=== PATIENT | male | born 1960 | race Two or more races ===

== ENCOUNTER 2024-08-06 21:58 | Emergency (ER) | payer MEDICARE, MEDICAID, SELFPAY ==
[2024-08-06] VITALS (9 sets, daily range): BP systolic 92–140; BP diastolic 42–60; PULSE 74–83; RESP 18–26; TEMP 37.1; O2SAT 94–100; BMI 26.5
--- NOTE | 2024-08-06 22:04 | EKG_ITS ---
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
--- NOTE | 2024-08-06 22:08 | PC.RT ---
pt transfered to ED without complications on 50% fio2 10L blow by spo2 96% hr 82, RR26.
--- NOTE | 2024-08-06 22:09 | XR_ITS ---
Examination: AP chest single view Technique one AP portable semiupright chest single view Exam date and time: August 06, 2024 1025 hrs. Comparison December 30, 2020 Indications: Coughing today. Findings: No significant cardiac enlargement Ectatic thoracic aorta Tracheostomy tube tip 20 mm above ifrah No lobar pneumonia No pulmonary edema Moderate osteopenia Impression: No pneumonia identified
[2024-08-06] MEDS: SODIUM CHLORIDE 0.9% 1000 ML 1,000 ML 999 ML IV ×2 (22:17→22:18)
--- NOTE | 2024-08-06 22:22 | PD.EDSOB ---
ED SOB =RME/HPI General Chief Complaint: Shortness of Breath/Dyspnea Stated Complaint: LOW O2 STATS Time Seen by Provider: 08/06/24 22:21 Arrival date/time: 08/06/24 21:58 RME / HPI RME / HPI Narrative: DR. ALEJANDRO MAIN ED EVALUATION: 64 year old male with past medical history significant for hypertension, hypercholesterolemia, GERD, and a GI tube in place presents to the Emergency Department from our subacute unit with complaints of O2 sat low and low blood pressure. Related Data Allergies Allergy/AdvReac Type Severity Reaction Status Date / Time No Known Allergies Allergy Verified 08/06/24 22:04 Review of Systems Review of Systems ROS Unobtainable: unobtainable due to medical condition Past Medical History Past Medical History CARDIAC: Positive Hypercholesterolemia, Edema and Hypertension RESPIRATORY: Positive Pneumonia GASTROINTESTINAL: Positive Gastroesophageal Reflux Disease GENITOURINARY: Positive Renal Disease ENT: Positive Glaucoma HEMATOLOGIC: Positive Anemia Surgical History SURGICAL: Positive Abdominal Surgery Social History SMOKING STATUS: Never smoker SUBSTANCE USE: does not use ALCOHOL: Never ED Exam Narrative Physical exam: GENERAL APPEARANCE: patient bedbound, no history obtainable from patient, at baseline. VITALS: All vitals were reviewed and the pulse ox is 100% on room air, which is normal according to my interpretation. HEENT: Normocephalic, atraumatic; pupils equal, round, reactive to light; EOMI; mucous membranes pink, moist; oropharynx clear NECK: Supple LUNGS: CTABL; no wheezes, no rales, no rhonchi HEART: Regular rate, regular rhythm; normal S1, S2; no murmurs ABDOMEN: GI tube in place. Non distended; soft, no tenderness, no guarding, no rebound; no masses, no organomegaly, no hernia BACK: no CVA tenderness EXTREMITIES: atraumatic; no edema NEUROLOGIC: at baseline PSYCHIATRIC: at baseline SKIN: warm, dry, normal color; no rashes Course Quality Measures none Orders Category Date Time Status EKG (ED ONLY) *Do not use* NOW Care 08/06/24 22:04 Completed Roper [Urinary Catheter] QS Care 08/06/24 22:20 Completed MRI Screening NOW Care 08/07/24 05:18 Completed Referral - Field Sales Consultant Stat Cons 08/07/24 10:[address] abdomen pelvis wo con Stat Exams 08/07/24 00:[address] head/brain wo con Stat Exams 08/07/24 10:26 Completed EKG (ED Only) Stat Exams 08/06/24 22:04 Draft MR MRCP Stat Exams 08/07/24 Completed US abdomen limited Stat Exams 08/07/24 00:03 Completed XR chest 1V portable Stat Exams 08/06/24 22:09 Completed ABG [Arterial Blood Gas] Stat Lab 08/06/24 22:21 Completed Blood Culture (Lab) Stat Lab 08/06/24 22:15 Completed CBC Stat Lab 08/07/24 11:18 Completed CMP [Comprehensive Metabolic Panel] Stat Lab 08/06/24 22:15 Completed CMP [Comprehensive Metabolic Panel] Stat Lab 08/07/24 11:18 Completed Lactate (Lactic Acid) Stat Lab 08/06/24 22:15 Completed Lactic Acid [Lactate (Lactic Acid)] Stat Lab 08/07/24 11:18 Completed Lactic Acid, 3 HR Stat Lab 08/07/24 01:54 Completed Lipase Stat Lab 08/07/24 11:18 Completed Urinalysis Stat Lab 08/07/24 01:45 Completed Urine Culture Stat Lab 08/07/24 01:45 Completed LORazepam [Ativan Inj] Med 08/07/24 13:06 Discontinued 0.5 mg IVP X1 ONE Morphine Inj Med 08/07/24 13:30 Discontinued 8 mg IVP X1 ONE Morphine Inj Med 08/07/24 13:30 Stop Req 8 mg IVP X1 ONE Morphine Inj [Morphine Sulf Inj] Med 08/07/24 13:06 Discontinued 8 mg IVP X1 ONE Piper/Tazo 3.375 gm [Zosyn] Med 08/07/24 01:36 Discontinued 3.375 gm in 50 ml IV X1 Piper/Tazo 3.375 gm [Zosyn] 50 ml Med 08/07/24 02:02 Discontinued IV .STK-MED Piper/Tazo Inj [Zosyn Inj] 3.375 gm Med 08/07/24 10:45 Discontinued Sodium Chloride 0.9% (P) [NS 0.9% mini bag] 100 ml IV X1 Piper/Tazo Inj [Zosyn Inj] 3.375 gm Med 08/07/24 02:00 Discontinued Sodium Chloride 0.9% (P) [Ns 0.9% (P)] 50 ml IV X1 Sodium Chloride 0.9% 1000 ml [Ns] 1,000 ml Med 08/06/24 22:08 Discontinued IV 999 mls/hr Sodium Chloride 0.9% 1000 ml [Ns] 1,000 ml Med 08/06/24 22:08 Discontinued IV 999 mls/hr Sodium Chloride 0.9% 1000 ml [Ns] 1,000 ml Med 08/07/24 14:25 Discontinued IV 999 mls/hr Vancomycin Inj 1,000 mg Med 08/06/24 22:51 Discontinued Sodium Chloride 0.9% 250 ml [Ns] 250 ml IV X1 Vancomycin Pharmacy to Dose Med 08/07/24 10:30 Discontinued 1 each IV QDAY PRN Vancomycin/Ns 1 gm Ivpb 200 ml Med 08/07/24 14:00 Discontinued IV X1 cefTRIAXone/D5w 1gm IV premix [Rocephin/D5w 1gm IV Med 08/06/24 22:50 Discontinued premix] 50 ml IV X1 Oxygen Delivery NOW RT 08/06/24 22:25 Completed Vital Signs Vital signs: Vital Signs Temperature 98.7 F 08/06/24 22:04 Pulse Rate 83 08/06/24 22:04 Respiratory Rate 24 H 08/06/24 22:04 Blood Pressure 92/42 L 08/06/24 22:04 Pulse Oximetry (%) 94 L 08/06/24 22:04 Oxygen Delivery Method Blow-by 08/06/24 22:04 Oxygen Flow Rate 12 08/06/24 22:04 Shortness of Breath / Dyspnea MDM Narrative MDM Narrative:: I, Sachi Omalley, am scribing for and in the presence of Dr. Alejandro. 0600 Care signed out to Dr. Carlin. Past medical, surgical, social and family history reviewed. Vitals and home medications reviewed. Results and treatment plan discussed. They will assume the care of the patient at this time and will follow the patient, pending MRCP and final dispo. Patient data External records reviewed:: [facility] previous records (Reviewed last pulmonology progress note by Dr. Smith, dated 08/04/24.) Clinical information provided by:: other (specify) (subacute unit nurse) Social determinants that could affect healthcare access:: housing (subacute unit) Patient has the following chronic illnesses:: Hypertension, hypercholesterolemia, GERD, and a GI tube in place. How is presenting disease/condition affected by chronic disease/condition?: exacerbated by Evaluation data The following diagnostics were reviewed and interpreted by me:: lab results, radiology exam(s) and EKG tracing(s) Lab and/or radiology exams considered but not ordered:: none Interpretation Summary: Procedure(s): XR chest 1V portable Accession Number(s): [id number] cc: Conor Wallace MD; Yohana Alejandro MD~ Examination: AP chest single view Technique one AP portable semiupright chest single view Exam date and time: August 06, 2024 1025 hrs. Comparison December 30, 2020 Indications: Coughing today. Findings: No significant cardiac enlargement Ectatic thoracic aorta Tracheostomy tube tip 20 mm above ifrah No lobar pneumonia No pulmonary edema Moderate osteopenia Impression: No pneumonia identified Dictated By: Conor Wallace MD Medications / Prescriptions Medications or Prescriptions considered but not ordered:: none Medication administrations:: Medication Administration History Discontinued Medications Sodium Chloride (Ns) 1,000 mls @ 999 mls/hr IV .Q1H1M ONE Stop: 08/06/24 23:08 Last Infusion: 08/06/24 23:20 Dose: Infused Documented By: Admin: 08/06/24 22:17 Dose: 999 mls/hr Documented By: BETI Sodium Chloride (Ns) 1,000 mls @ 999 mls/hr IV .Q1H1M ONE Stop: 08/06/24 23:08 Last Infusion: 08/06/24 23:20 Dose: Infused Documented By: Admin: 08/06/24 22:18 Dose: 999 mls/hr Documented By: BETI Ceftriaxone Sodium/Dextrose (Rocephin/D5w 1gm Iv Premix) 50 mls @ 100 mls/hr IV X1 ONE Stop: 08/06/24 23:19 Last Infusion: 08/07/24 00:02 Dose: Infused Documented By: Admin: 08/06/24 22:58 Dose: 100 mls/hr Documented By: MANSOOR Vancomycin HCl 1,000 mg/ (Sodium Chloride) 250 mls @ 150 mls/hr IV X1 ONE Stop: 08/07/24 00:30 Last Infusion: 08/07/24 01:28 Dose: Infused Documented By: Admin: 08/06/24 23:27 Dose: 150 mls/hr Documented By: MANSOOR Piperacillin/Tazobactam/Dextrose (Zosyn) 3.375 gm in 50 mls @ 100 mls/hr IV X1 ONE Stop: 08/07/24 02:05 Last Admin: 08/07/24 02:01 Dose: Not Given Documented By: ADELSO Non-Admin Reason: Discontinued Piperacillin Sod/Tazobactam (Sod 3.375 gm/ Sodium Chloride) 50 mls @ 100 mls/hr IV X1 ONE Stop: 08/07/24 02:29 Last Infusion: 08/07/24 02:59 Dose: Infused Documented By: Admin: 08/07/24 02:03 Dose: 100 mls/hr Documented By: ADELSO Piperacillin/Tazobactam/Dextrose (Zosyn) Confirm Administered Dose 50 mls @ ud IV .STK-MED ONE Stop: 08/07/24 02:03 Last Admin: 08/07/24 02:11 Dose: Not Given Documented By: ADELSO Non-Admin Reason: Override Medication Piperacillin Sod/Tazobactam (Sod 3.375 gm/ Sodium Chloride) 100 mls @ 200 mls/hr IV X1 ONE Stop: 08/07/24 11:14 Last Infusion: 08/07/24 12:15 Dose: Infused Documented By: Admin: 08/07/24 11:44 Dose: 200 mls/hr Documented By: DO Vancomycin/Sodium Chloride (Vancomycin/Ns 1 Gm Ivpb) 200 mls @ 120 mls/hr IV X1 ONE Stop: 08/07/24 15:39 Last Infusion: 08/07/24 17:20 Dose: Infused Documented By: Admin: 08/07/24 15:29 Dose: 120 mls/hr Documented By: DO Sodium Chloride (Ns) 1,000 mls @ 999 mls/hr IV .Q1H1M ONE Stop: 08/07/24 15:25 Last Infusion: 08/07/24 16:12 Dose: Infused Documented By: Admin: 08/07/24 14:26 Dose: 999 mls/hr Documented By: DO Lorazepam (Lorazepam 2 Mg/Ml Vial) 0.5 mg IVP X1 ONE Stop: 08/07/24 13:07 Last Admin: 08/07/24 14:20 Dose: 0.5 mg Documented By: DO Morphine Sulfate (Morphine Sulf Inj 4 Mg/Ml Vial) 8 mg IVP X1 ONE Stop: 08/07/24 13:07 Last Admin: 08/07/24 14:24 Dose: Not Given Documented By: DO Non-Admin Reason: Duplicate Medication on eMAR Morphine Sulfate (Morphine Sulf Inj 10 Mg/Ml Vial) 8 mg IVP X1 ONE Stop: 08/07/24 13:31 Morphine Sulfate (Morphine Sulf Inj 10 Mg/Ml Vial) 8 mg IVP X1 ONE Stop: 08/07/24 13:31 Last Admin: 08/07/24 14:21 Dose: 4 mg Documented By: DO Comments: dose changed per dr landry to 4mg Pharmacy Consult (Vancomycin Pharmacy To Dose 1 Each Each) 1 each IV QDAY PRN PRN Reason: CONSULT Stop: 09/06/24 10:29 see above Consultations Consultation(s) initiated? (list below): No Diagnosis Shortness of Breath Differential Diagnosis: congestive heart failure, community acquired pneumonia, asthma with exacerbation and pulmonary embolism Most likely diagnosis given after review of the tests above:: See below Admission Indicated Admission indicated?: not indicated Explain why admission is indicated or not indicated:: Sign out pending MRCP Admission Request Was there a request for admission?: No Disposition Plan Disposition Plan: other (specify) (Sign out pending MRCP) Discharge Plan Plan Patient Disposition: [facility] Facility Pt Being Transferred to: [facility] Service Needed for Transfer: Gastroenterology Patient condition on transfer: Stable Prescriptions/Referrals Referrals: Chino Smith MD [Primary Care Provider] - In 1 week Problem List Clinical Impression: Acute cholangitis due to calculus of bile duct with obstruction Patient/Caregiver Discharge Instructions Print Language: Pashto Stand Alone Forms: Mel Award Info., Patient Portal Info Letter
[2024-08-06 22:23] LABS: Lactate (Lactic Acid) 2.8 mMol/L (0.4-2.0)
[2024-08-06 22:28] LABS: Base Excess -2 (-3-3); HCO3 23 mEq/L (20-26); Inspired Oxygen, FIO2 50 %; O2 Saturation 99 % (91-98); PCO2 40 mmHg (32.0-48.0); PO2 112 mmHg (83-108); pH, Arterial 7.38 (7.35-7.45)
[2024-08-06 22:30] LABS: Allen Test Performed/OK; Puncture Site Site Not Noted
[2024-08-06 22:56] LABS: Alanine Aminotransferase 1048 U/L (10-49); Albumin, Serum 3.2 gm/dL (3.4-4.8); Albumin/Globulin Ratio 1.2 (1.2-2.2); Alkaline Phosphatase 190 U/L (46-116); Anion Gap 10 (7-16); BUN/Creatinine Ratio 15 Ratio (12-20); Bilirubin,Total 4.4 mg/dL (0.3-1.2); Blood Urea Nitrogen 29 mg/dL (9-23); Calcium 8.3 mg/dL (8.3-10.6); Calcium (Corrected) 8.9 mg/dL (8.5-10.1); Carbon Dioxide 23.4 mMol/L (20.0-31.0); Chloride 98 mMol/L (98-107); Creatinine (Component) 1.9 mg/dL (0.6-1.3); Estimated Creatinine Clearance 40.6 mL/min (>60); Globulin 2.7 gm/dL (2.3-3.5); Glucose 171 mg/dL (74-106); Osmolality,Calculated 272 (275-295); Potassium 4.1 mMol/L (3.4-5.1); Sodium 131 mMol/L (136-145); Total Protein 5.9 gm/dL (5.7-8.2); eGFR 39 See Note
[2024-08-06] MEDS: cefTRIAXone/D5w 1gm IV premix 50 ML IV (22:58)
[2024-08-06 23:09] LABS: Aspartate Amino Transferase 1068 U/L (0-34)
[2024-08-06] MEDS: Vancomycin Inj 1,000 MG in SODIUM CHLORIDE 0.9% 250 ML 250 ML 150 MG IV (23:27)
[2024-08-07] VITALS (28 sets, daily range): BP systolic 103–151; BP diastolic 48–104; PULSE 59–102; RESP 8–34; TEMP 36.5–37.1; O2SAT 95–100
--- NOTE | 2024-08-07 | XR_ITS ---
MRI abdomen, without contrast. MRCP Date and time of exam: August 07, 2024 at 1410 hours INDICATIONS: Low O2 saturation low blood pressure, primary hepatocellular disease diagnosis with ascites, common bile duct enlarged 0.6 cm on abdomen sonogram today Technique: Multiple axial and coronal images of the abdomen have been obtained with the Siemens 1.5T MRI scanner. Images obtained included T1 weighted transverse images, T2-weighted transverse images, T2-weighted transverse images fat-suppressed, T2 weighted haste fat suppressed transverse images, T1 weighted images, in and out of phase images, T2-weighted coronal images, breath hold, T2 weighted haze coronal images as well as T2 weighted coronal thick slab images, MRCP. Findings: No focal liver lesions Gallbladder not visualized Common bile duct 6 mm 4 mm common bile duct stone coronal image 19 Mild free fluid in the abdomen below the liver surrounding the kidneys and around the pancreas, clinical correlation advised Aorta normal size No splenomegaly No hydronephrosis IMPRESSION: Mild ascites 4 mm distal common bile duct stone
--- NOTE | 2024-08-07 00:03 | XR_ITS ---
Examination: Abdomen sonogram, Limited Date and time of exam: August 07, 2024 0138 hrs. Indications: Elevated liver function tests on laboratory examination today, hypoxic respiratory failure Technique: Real-time patterson scale transabdominal sonographic images of the upper abdomen obtained. Findings: Gallbladder not visualized Common bile duct 0.6 cm no stones Pancreas obscured by bowel gas Liver 14.5 cm irregular contour mild ascites Normal hepatopedal portal venous flow Patent IVC Impression: Limited study Common bile duct 0.6 cm no stones Primary hepatocellular disease with mild ascites
--- NOTE | 2024-08-07 00:03 | XR_ITS ---
Examination: CT abdomen and pelvis without contrast. Coronal 3-D reconstructions. Sagittal 2-D reconstructions. Date and time of exam:August 07, 2024 0032 hrs. Indications: Low O2 saturation, hypoxia, onset sepsis today CTDI: vol (mGy): 12.81 DLP: (mGycm): 823 Technique: Axial images of the abdomen have been obtained, 3 mm slice thickness Intravenous contrast material has not been administered. Low dose protocols were performed. One or more of the following dose reduction techniques were used; automated exposure control, adjustment of the mA and/or KV according to patient size, use of iterative reconstruction technique. Findings: Right base pneumonia Small right pleural effusion Mild right pleural disease No focal liver lesions Absent gallbladder Common bile duct at least 8 mm with 4 mm calculus in the distal common bile duct Suspicious for edema around the pancreas Perinephric stranding Aorta normal size No pericecal inflammatory change No diverticulitis Large amounts of stool in the rectosigmoid with thickening of the rectal wall Urinary bladder contracted around a Roper catheter Prominent osteopenia Impression: Recommend MRCP follow-up to confirm 4 mm calculus in the distal common bile duct as well as to confirm pancreatitis Right base pneumonia Large amounts of stool in the rectosigmoid with proctitis pattern but clinical correlation advised
--- NOTE | 2024-08-07 00:45 | PC.RT ---
pt back from ct without complications pt on 8L 30% hr 72, sats 96% RR18.
[2024-08-07 01:23] LABS: Reflex Lactate? Y
--- NOTE | 2024-08-07 01:38 | PRELIM_ITS ---
CT scan of the abdomen and pelvis without intravenous contrast (axial sections with sagittal and zara nal reformats). August 07, 2024 at 0032 hours Clinical History: Sepsis. Comparison: No prior study is available for comparison. Findings:The gallbladder is surgically absent. There is a 4 mm calculus in the distal common bile duct (coronal image #91/161) with mildly dilated common bile duct, measurin g 9 mm. The pancreas appears mildly edematous with minimal peripancreatic fat stranding. No evidence of loculated peripancreatic fluid collection. The liver, spleen and adrenals are unremarkable on this noncontrast study. Subtle nonspecific bilateral perinephric fat stranding, which may be due to intra venous infusion versus pyelonephritis. There is no renal or ureteric calculus. A subcentimeter hypod ense lesion is seen in the right kidney, too small to characterize. A percutaneous gastrostomy tube i s seen with its bulb within the body of the stomach. The stomach is mildly distended with air and fl uid. No evidence of bowel obstruction. The appendix is not visualized. There are multiple colonic di verticula without evidence of diverticulitis. Rectosigmoid colon fecal impaction is seen with wall th ickening and surrounding fat stranding. The aorta and its branches demonstrate atheromatous calcifica tion without evidence of aneurysm. There are subcentimeter mesenteric and retroperitoneal lymph nodes . A Roper catheter is seen in the urinary bladder. The urinary bladder is partially distended with ap parent wall thickening. The prostate is mildly enlarged. A small amount of free fluid is seen in the right upper and mid abdomen. No evidence of free air. The bones are osteopenic. Osseous degenerative changes are noted. Mild cardiomegaly is seen. A small pericardial effusion is seen. Bibasilar streak y and dependent atelectasis are present (right greater than left). A small right pleural effusion is seen. There is bilateral gynecomastia. Please note that evaluation of soft tissue/vascular structures and bowel loops is limited due to absence of IV and oral contrast. Impression:1. A 4 mm calculus in the distal common bile duct with dilated common bile duct as described. 2. Mildly edematous pancreas with minimal peripancreatic fat stranding; possibility of early/mild acute pancreatitis in the approp riate clinical setting. No evidence of peripancreatic fluid collection at this time.3. Subtle nonspec ific bilateral perinephric fat stranding, which may be due to intravenous infusion versus pyelonephri tis. Suggest clinical correlation and follow up accordingly. 4. Partially distended urinary bladder w ith apparent wall thickening, mild chronic cystitis cannot be excluded. 5. Rectosigmoid colon fecal impaction with possible stercoral colitis. 6. Bibasilar streaky and dependent atelectasis (right grea ter than left), consistent with aspiration/pneumonitis.7. Small pericardial effusion. 8. Small right pleural effusion.9. Other findings as described above. Suggest clinical correlation, comparison with prior studies, follow up or further evaluation as clinically indicated. Discussion Details: Results verbally communicated to : Dr. Alejandro at 01:29 AM 08/07/2024 Report Electronically Signed By: Mckay Banks 08/07/2024 1:38:10 AM [EST]
[2024-08-07 02:02] LABS: Collection Type, Urine Clean Catch
[2024-08-07] MEDS: PIPER/TAZO INJ 3.375 GM in SODIUM CHLORIDE 0.9% (P) 50 ML IV (02:03)
[2024-08-07 02:10] LABS: Bacteria,Urine 1+; Bilirubin,Urine Negative (Negative); Blood,Urine 3+ (Negative); Budding Yeast,Urine Present; Clarity,Urine Turbid (Clear/Hazy); Color,Urine Brown (Lt Yel-Yel); Glucose, Urine Negative (Negative); Ketones,Urine Negative (Negative); Leukocyte Esterase,Urine Positive (Negative); Nitrite,Urine Negative (Negative); PH,Urine 6.5 (5.0-7.0); Protein,Urine 1+ (Neg - Trace); RBC,Urine 195 /hpf (0-3); Specific Gravity,Urine 1.006 (1.001-1.035); Squamous Epithelial Cell,Urine 1 /hpf (0-5); Urobilinogen,Urine Negative mg/dL (0.0-1.0); WBC,Urine 27 /hpf (0-5)
--- NOTE | 2024-08-07 02:54 | PRELIM_ITS ---
Limited abdominal ultrasoundClinical history: Elevated LFTs.Comparison: CT study dated August 07.Findings:Post cholecystectomy. Common bile duct is 6 mm in diameter. Pancreas is not visualized, obscured by bowel gas. Liver is 14.5 cm long. Trace free fluid around the liver. Liver contour is irr egular. Main portal vein is antegrade. Inferior vena cava is patent. Right basal atelectasis/consolid ation.Impression:Post cholecystectomy.Trace free fluid around the liver and possible hepatic cirrhosi s.Right basal pulmonary disease. Report Electronically Signed By: Alex Sanchez 08/07/2024 2:53:30 AM [EST]
--- NOTE | 2024-08-07 06:45 | PC.NURSE ---
SPOKE TO RALF WHO ANSWERED MRI SCREENING, AND GAVE TELEPHONE VERBAL CONSENT FOR MRI TO BE DONE, CAPRI WAS WITNESS TO TELEPHONE VERBAL CONSENT.
--- NOTE | 2024-08-07 06:46 | PD.EDADDENDU ---
Emergency Room Addendum Addendum Narrative: 0600: Care assumed from , the previous shift emergency physician. Past medical, surgical, social and family history reviewed. Vitals and home medications reviewed. I will assume the care of the patient at this time, [facility] Please refer to the emergency department record for history and examination from initial visit.? Nursing notes reviewed by me. Vital signs reviewed by me. [facility] medical records reviewed by me. Patient from the subacute unit within this facility.
--- NOTE | 2024-08-07 07:10 | EDNOTE_ITS ---
ED General RME/HPI General Chief complaint: Shortness of Breath/Dyspnea Stated complaint: LOW O2 STATS Time Seen by Provider: 08/06/24 22:21 Arrival date/time: 08/06/24 21:58 RME / HPI RME / HPI narrative: A 64 year old male with past medical history significant for hypertension, hypercholesterolemia, GERD, and a GI tube in place presents to the Emergency Department from our subacute unit with complaints of O2 sat low and low blood pressure. Patient is unable to speak as he is on blow-by. Attempts were made to reach out to family. Patient was found to have 4mm calculus in the distal common bile duct with dilated common bile duct. At ~6:45am on 08/07/24-Nursing, Brian Patterson, spoke with over the phone who answered the question for our MRCP screening and a full telephone verbal consent for MRI to be done. RNJaniya, was witness to the telephone VERBAL CONSENT for MRCP and any further testing. MD complaint: Hypotension Related Data Allergies Allergy/AdvReac Type Severity Reaction Status Date / Time No Known Allergies Allergy Verified 08/06/24 22:04 Review of Systems Review of Systems Systems Reviewed: All systems reviewed, normal except as documented Past Medical History Past Medical History CARDIAC: Positive Hypercholesterolemia, Edema and Hypertension RESPIRATORY: Positive Pneumonia GASTROINTESTINAL: Positive Gastroesophageal Reflux Disease GENITOURINARY: Positive Renal Disease ENT: Positive Glaucoma HEMATOLOGIC: Positive Anemia Surgical History SURGICAL: Positive Abdominal Surgery Social History SMOKING STATUS: Never smoker SUBSTANCE USE: does not use ALCOHOL: Never ED Exam Narrative Physical exam: GENERAL APPEARANCE: male patient bedbound at baseline. VITALS: All vitals were reviewed and the pulse ox is 100% on blow-by HEENT: Normocephalic, atraumatic; pupils equal, round, reactive to light; moist mucous membranes. NECK: Supple LUNGS: CTABL; no wheezes, no rales, moderate rhonchi HEART: Regular rate, regular rhythm; normal S1, S2; no murmurs ABDOMEN: Non distended; soft, no tenderness, no guarding, no rebound; no masses, GI tube in place. surgical scar noted in RLQ BACK: no CVA tenderness EXTREMITIES: atraumatic; no edema NEUROLOGIC: at baseline SKIN: warm, dry, normal color; no rashes Course Quality Measures none Orders Category Date Time Status EKG (ED ONLY) *Do not use* NOW Care 08/06/24 22:04 Completed Roper [Urinary Catheter] QS Care 08/06/24 22:20 Completed MRI Screening NOW Care 08/07/24 05:18 Completed Referral - Veterans Contact Representative Stat Cons 08/07/24 10:[address] abdomen pelvis wo con Stat Exams 08/07/24 00:[address] head/brain wo con Stat Exams 08/07/24 10:26 Completed EKG (ED Only) Stat Exams 08/06/24 22:04 Draft MR MRCP Stat Exams 08/07/24 Completed US abdomen limited Stat Exams 08/07/24 00:03 Completed XR chest 1V portable Stat Exams 08/06/24 22:09 Completed ABG [Arterial Blood Gas] Stat Lab 08/06/24 22:21 Completed Blood Culture (Lab) Stat Lab 08/06/24 22:15 Results CBC Stat Lab 08/07/24 11:18 Completed CMP [Comprehensive Metabolic Panel] Stat Lab 08/06/24 22:15 Completed CMP [Comprehensive Metabolic Panel] Stat Lab 08/07/24 11:18 Completed Lactate (Lactic Acid) Stat Lab 08/06/24 22:15 Completed Lactic Acid [Lactate (Lactic Acid)] Stat Lab 08/07/24 11:18 Completed Lactic Acid, 3 HR Stat Lab 08/07/24 01:54 Completed Lipase Stat Lab 08/07/24 11:18 Completed Urinalysis Stat Lab 08/07/24 01:45 Completed Urine Culture Stat Lab 08/07/24 01:45 Received LORazepam [Ativan Inj] Med 08/07/24 13:06 Discontinued 0.5 mg IVP X1 ONE Morphine Inj Med 08/07/24 13:30 Discontinued 8 mg IVP X1 ONE Morphine Inj Med 08/07/24 13:30 Stop Req 8 mg IVP X1 ONE Morphine Inj [Morphine Sulf Inj] Med 08/07/24 13:06 Discontinued 8 mg IVP X1 ONE Piper/Tazo 3.375 gm [Zosyn] Med 08/07/24 01:36 Discontinued 3.375 gm in 50 ml IV X1 Piper/Tazo 3.375 gm [Zosyn] 50 ml Med 08/07/24 02:02 Discontinued IV .STK-MED Piper/Tazo Inj [Zosyn Inj] 3.375 gm Med 08/07/24 10:45 Discontinued Sodium Chloride 0.9% (P) [NS 0.9% mini bag] 100 ml IV X1 Piper/Tazo Inj [Zosyn Inj] 3.375 gm Med 08/07/24 02:00 Discontinued Sodium Chloride 0.9% (P) [Ns 0.9% (P)] 50 ml IV X1 Sodium Chloride 0.9% 1000 ml [Ns] 1,000 ml Med 08/06/24 22:08 Discontinued IV 999 mls/hr Sodium Chloride 0.9% 1000 ml [Ns] 1,000 ml Med 08/06/24 22:08 Discontinued IV 999 mls/hr Sodium Chloride 0.9% 1000 ml [Ns] 1,000 ml Med 08/07/24 14:25 Discontinued IV 999 mls/hr Vancomycin Inj 1,000 mg Med 08/06/24 22:51 Discontinued Sodium Chloride 0.9% 250 ml [Ns] 250 ml IV X1 Vancomycin Pharmacy to Dose Med 08/07/24 10:30 Discontinued 1 each IV QDAY PRN Vancomycin/Ns 1 gm Ivpb 200 ml Med 08/07/24 14:00 Discontinued IV X1 cefTRIAXone/D5w 1gm IV premix [Rocephin/D5w 1gm IV Med 08/06/24 22:50 Discontinued premix] 50 ml IV X1 Oxygen Delivery NOW RT 08/06/24 22:25 Completed Vital Signs Vital signs: Vital Signs Temperature 98.7 F 08/06/24 22:04 Pulse Rate 83 08/06/24 22:04 Respiratory Rate 24 H 08/06/24 22:04 Blood Pressure 92/42 L 08/06/24 22:04 Pulse Oximetry (%) 94 L 08/06/24 22:04 Oxygen Delivery Method Blow-by 08/06/24 22:04 Oxygen Flow Rate 12 08/06/24 22:04 [facility] Patient data External records reviewed:: None Clinical information provided by:: family Social determinants that could affect healthcare access:: none Patient has the following chronic illnesses:: history of hypertension, hypercholesterolemia, GERD, and a GI tube in place How is presenting disease/condition affected by chronic disease/condition?: u neffected by Evaluation data The following diagnostics were reviewed and interpreted by me:: lab results and radiology exam(s) Lab and/or radiology exams considered but not ordered:: N/A Interpretation Summary: CT head: no active defects noted. 4 mm distal common bile duct stone on MRCP. CT abdomen and pelvis showed common bile duct at least 8 mm with 4 mm calculus in the distal common bile duct Suspicious for edema around the pancreas. Medications Medications considered but not ordered:: N/A Medication administrations:: Medication Administration History Discontinued Medications Sodium Chloride (Ns) 1,000 mls @ 999 mls/hr IV .Q1H1M ONE Stop: 08/06/24 23:08 Last Infusion: 08/06/24 23:20 Dose: Infused Documented By: Admin: 08/06/24 22:17 Dose: 999 mls/hr Documented By: BETI Sodium Chloride (Ns) 1,000 mls @ 999 mls/hr IV .Q1H1M ONE Stop: 08/06/24 23:08 Last Infusion: 08/06/24 23:20 Dose: Infused Documented By: Admin: 08/06/24 22:18 Dose: 999 mls/hr Documented By: BETI Ceftriaxone Sodium/Dextrose (Rocephin/D5w 1gm Iv Premix) 50 mls @ 100 mls/hr IV X1 ONE Stop: 08/06/24 23:19 Last Infusion: 08/07/24 00:02 Dose: Infused Documented By: Admin: 08/06/24 22:58 Dose: 100 mls/hr Documented By: MANSOOR Vancomycin HCl 1,000 mg/ (Sodium Chloride) 250 mls @ 150 mls/hr IV X1 ONE Stop: 08/07/24 00:30 Last Infusion: 08/07/24 01:28 Dose: Infused Documented By: Admin: 08/06/24 23:27 Dose: 150 mls/hr Documented By: MANSOOR Piperacillin/Tazobactam/Dextrose (Zosyn) 3.375 gm in 50 mls @ 100 mls/hr IV X1 ONE Stop: 08/07/24 02:05 Last Admin: 08/07/24 02:01 Dose: Not Given Documented By: ADELSO Non-Admin Reason: Discontinued Piperacillin Sod/Tazobactam (Sod 3.375 gm/ Sodium Chloride) 50 mls @ 100 mls/hr IV X1 ONE Stop: 08/07/24 02:29 Last Infusion: 08/07/24 02:59 Dose: Infused Documented By: Admin: 08/07/24 02:03 Dose: 100 mls/hr Documented By: ADELSO Piperacillin/Tazobactam/Dextrose (Zosyn) Confirm Administered Dose 50 mls @ ud IV .STK-MED ONE Stop: 08/07/24 02:03 Last Admin: 08/07/24 02:11 Dose: Not Given Documented By: ADELSO Non-Admin Reason: Override Medication Piperacillin Sod/Tazobactam (Sod 3.375 gm/ Sodium Chloride) 100 mls @ 200 mls/hr IV X1 ONE Stop: 08/07/24 11:14 Last Infusion: 08/07/24 12:15 Dose: Infused Documented By: Admin: 08/07/24 11:44 Dose: 200 mls/hr Documented By: DO Vancomycin/Sodium Chloride (Vancomycin/Ns 1 Gm Ivpb) 200 mls @ 120 mls/hr IV X1 ONE Stop: 08/07/24 15:39 Last Infusion: 08/07/24 17:20 Dose: Infused Documented By: Admin: 08/07/24 15:29 Dose: 120 mls/hr Documented By: DO Sodium Chloride (Ns) 1,000 mls @ 999 mls/hr IV .Q1H1M ONE Stop: 08/07/24 15:25 Last Infusion: 08/07/24 16:12 Dose: Infused Documented By: Admin: 08/07/24 14:26 Dose: 999 mls/hr Documented By: Lorazepam (Lorazepam 2 Mg/Ml Vial) 0.5 mg IVP X1 ONE Stop: 08/07/24 13:07 Last Admin: 08/07/24 14:20 Dose: 0.5 mg Documented By: Morphine Sulfate (Morphine Sulf Inj 4 Mg/Ml Vial) 8 mg IVP X1 ONE Stop: 08/07/24 13:07 Last Admin: 08/07/24 14:24 Dose: Not Given Documented By: Non-Admin Reason: Duplicate Medication on eMAR Morphine Sulfate (Morphine Sulf Inj 10 Mg/Ml Vial) 8 mg IVP X1 ONE Stop: 08/07/24 13:31 Morphine Sulfate (Morphine Sulf Inj 10 Mg/Ml Vial) 8 mg IVP X1 ONE Stop: 08/07/24 13:31 Last Admin: 08/07/24 14:21 Dose: 4 mg Documented By: Comments: dose changed per dr landry to 4mg Pharmacy Consult (Vancomycin Pharmacy To Dose 1 Each Each) 1 each IV QDAY PRN PRN Reason: CONSULT Stop: 09/06/24 10:29 Ceftriaxone, vancomycin, Zosyn Consultations Consultation(s) initiated? (list below): Yes Consultation #1 (Physician, Specialty, Details): Dr. Mendoza Consultation #3 (Physician, Specialty, Details): Gastroenterology Diagnosis Differential Diagnosis ED Complaint MDM: ascending cholangitis Most likely diagnosis given after review of the tests above:: Biliary Admission Indicated Admission indicated?: not indicated Explain why admission is indicated or not indicated:: Patient was evaluated with MRCP, fund to have a 4mm common bile duct stone. Considering [facility] does not offer ERCP services, transfer nurse at [facility] assisted with transfer. Discussion was made with LUCIO Petersen, at [facility] for higher level of care. Patient requires an ERCP in the setting of common bile duct at least 8 mm with 4 mm calculus in the distal common bile duct. Patient is being transfered for ERCP to be done at that facility. Admission Request Was there a request for admission?: No Disposition Plan Disposition Plan: Transfer Medical Decision Making MDM Narrative MDM Narrative: 64 year old male with past medical history significant for hypertension, hypercholesterolemia, GERD, and a GI tube in place presents to the Emergency Department from subacute unit for O2 sat low and low blood pressure. As patient is unable to speak at baseline, attempts were made to reach out to family. Patient was found to have 4mm calculus in the distal common bile duct with dilated common bile duct. On 08/07/24-Nursing, Brian Patterson, spoke with over the phone who answered the question for our moderate screening and a full telephone verbal consent for MRI to be done. RNJaniya, was witness to the telephone VERBAL CONSENT for MRCP and any further testing. Patient required a CT brain as stated that per his prior nonhemorrhagic bleed, he had an intervention done but does not know what type. CT brain without contrast will be done for identifying of the stent was placed. Discussion was made with LUCIO Petersen, at [facility] for higher level of care. [facility] does not offer the services of ERCP. Patient requires an ERCP in the setting of common bile duct at least 8 mm with 4 mm calculus in the distal common bile duct. Patient is being transfered for ercp to be done at that facility. Differential Diagnosis Differential Diagnosis: ascending cholangitis Medical Records Medical records reviewed: Yes I reviewed the patient's medical records. Lab Data Lab results reviewed: Yes I reviewed the patient's lab results. 08/07/24 11:18 08/07/24 11:18 Labs: Lab Results 08/06/24 08/06/24 08/07/24 Range/Units 22:15 22:21 01:45 WBC (3.8-10.6) Thou/mm3 RBC (4.50-5.90) Miln/mm3 Hgb (13.5-16.0) g/dL Hct (41.0-53.0) % MCV (80-100) fL MCH (25.0-35.0) pg MCHC (31.0-37.0) g/dl RDW Std Deviation (35.1-43.9) fL Plt Count (140-440) Thou/mm3 Neut % (Auto) (37-80) % Lymph % (Auto) (10-50) % [place]ima % (Auto) (0-12) % Eos % (Auto) (0-10) % Baso % (Auto) (0-2.5) % Neut # (Auto) (1.8-7.7) Thou/mm3 Lymph # (Auto) (1.0-4.8) Thou/mm3 [place]ima # (Auto) (0.0-0.8) Thou/mm3 Eos # (Auto) (0.0-0.5) Thou/mm3 Baso # (Auto) (0.0-0.2) Thou/mm3 Immature Gran # (Auto) (0.00-0.00) Thou/mm3 Absolute Nucleated RBC (0.00-0.00) Thou/mm3 Immature Gran % (0-0) % Nucleated RBC % (0) /100 WBC Puncture Site Site Not Noted ABG pH 7.38 (7.35-7.45) ABG pCO2 40 (32.0-48.0) mmHg ABG pO2 112 H (83-108) mmHg ABG HCO3 23 (20-26) mEq/L ABG O2 Saturation 99 H (91-98) % ABG Base Excess -2 (-3-3) FiO2 50 % Sodium 131 L (136-145) mMol/L Potassium 4.1 (3.4-5.1) mMol/L Chloride 98 (98-107) mMol/L Carbon Dioxide 23.4 (20.0-31.0) mMol/L Anion Gap 10 (7-16) BUN 29 H (9-23) mg/dL Creatinine 1.9 H (0.6-1.3) mg/dL Estim Creat Clear Calc 40.6 L (>60) mL/min eGFR 39 L (60 - ) See Note BUN/Creatinine Ratio 15 (12-20) Ratio Glucose 171 H (74-106) mg/dL Calculated Osmolality 272 L (275-295) Lactic Acid 2.8 H (0.4-2.0) mMol/L Calcium 8.3 (8.3-10.6) mg/dL Corrected Calcium 8.9 (8.5-10.1) mg/dL Total Bilirubin 4.4 H (0.3-1.2) mg/dL AST 1068 H* (0-34) U/L ALT 1048 H* (10-49) U/L Alkaline Phosphatase 190 H (46-116) U/L Total Protein 5.9 (5.7-8.2) gm/dL Albumin 3.2 L (3.4-4.8) gm/dL Globulin 2.7 (2.3-3.5) gm/dL Albumin/Globulin Ratio 1.2 (1.2-2.2) Lipase (12-53) U/L Ur Collection Type Clean Catch Urine Color Brown A (Lt Yel-Yel) Urine Clarity Turbid A (Clear/Hazy) Urine pH 6.5 (5.0-7.0) Ur Specific Osteen 1.006 (1.001-1.035) Urine Protein 1+ A (Neg - Trace) Urine Glucose (UA) Negative (Negative) Urine Ketones Negative (Negative) Urine Blood 3+ A (Negative) Urine Nitrite Negative (Negative) Urine Bilirubin Negative (Negative) Urine Urobilinogen (Auto) Negative (0.0-1.0) mg/dL Ur Leukocyte Esterase Positive (Negative) Urine RBC 195 H (0-3) /hpf Urine WBC 27 H (0-5) /hpf Ur Squamous Epith Cells 1 (0-5) /hpf Urine Bacteria 1+ A (None) Urine Yeast (Budding) Present A (None) 08/07/24 08/07/24 Range/Units 01:54 11:18 WBC 15.2 H (3.8-10.6) Thou/mm3 RBC 4.07 L (4.50-5.90) Miln/mm3 Hgb 12.8 L (13.5-16.0) g/dL Hct 37.6 L (41.0-53.0) % MCV 92 (80-100) fL MCH 31.4 (25.0-35.0) pg MCHC 34.0 (31.0-37.0) g/dl RDW Std Deviation 42.6 (35.1-43.9) fL Plt Count 121 L (140-440) Thou/mm3 Neut % (Auto) 88 H (37-80) % Lymph % (Auto) 4 L (10-50) % Pima % (Auto) 7 (0-12) % Eos % (Auto) 0 (0-10) % Baso % (Auto) 0 (0-2.5) % Neut # (Auto) 13.4 H (1.8-7.7) Thou/mm3 Lymph # (Auto) 0.7 L (1.0-4.8) Thou/mm3 Pima # (Auto) 1.0 H (0.0-0.8) Thou/mm3 Eos # (Auto) 0.0 (0.0-0.5) Thou/mm3 Baso # (Auto) 0.0 (0.0-0.2) Thou/mm3 Immature Gran # (Auto) 0.11 H (0.00-0.00) Thou/mm3 Absolute Nucleated RBC 0.00 (0.00-0.00) Thou/mm3 Immature Gran % 1 H (0-0) % Nucleated RBC % 0 (0) /100 WBC Puncture Site ABG pH (7.35-7.45) ABG pCO2 (32.0-48.0) mmHg ABG pO2 (83-108) mmHg ABG HCO3 (20-26) mEq/L ABG O2 Saturation (91-98) % ABG Base Excess (-3-3) FiO2 % Sodium 136 (136-145) mMol/L Potassium 4.1 (3.4-5.1) mMol/L Chloride 101 (98-107) mMol/L Carbon Dioxide 27.3 (20.0-31.0) mMol/L Anion Gap 8 (7-16) BUN 29 H (9-23) mg/dL Creatinine 1.5 H (0.6-1.3) mg/dL Estim Creat Clear Calc 51.4 L (>60) mL/min eGFR 52 L (60 - ) See Note BUN/Creatinine Ratio 19 (12-20) Ratio Glucose 88 D (74-106) mg/dL Calculated Osmolality 276 (275-295) Lactic Acid 2.0 1.7 (0.4-2.0) mMol/L Calcium 8.3 (8.3-10.6) mg/dL Corrected Calcium 8.9 (8.5-10.1) mg/dL Total Bilirubin 5.0 H D (0.3-1.2) mg/dL AST 674 H* (0-34) U/L ALT 783 H* (10-49) U/L Alkaline Phosphatase 172 H (46-116) U/L Total Protein 6.1 (5.7-8.2) gm/dL Albumin 3.3 L (3.4-4.8) gm/dL Globulin 2.8 (2.3-3.5) gm/dL Albumin/Globulin Ratio 1.2 (1.2-2.2) Lipase 35 (12-53) U/L Ur Collection Type Urine Color (Lt Yel-Yel) Urine Clarity (Clear/Hazy) Urine pH (5.0-7.0) Ur Specific Osteen (1.001-1.035) Urine Protein (Neg - Trace) Urine Glucose (UA) (Negative) Urine Ketones (Negative) Urine Blood (Negative) Urine Nitrite (Negative) Urine Bilirubin (Negative) Urine Urobilinogen (Auto) (0.0-1.0) mg/dL Ur Leukocyte Esterase (Negative) Urine RBC (0-3) /hpf Urine WBC (0-5) /hpf Ur Squamous Epith Cells (0-5) /hpf Urine Bacteria (None) Urine Yeast (Budding) (None) Radiology Data Radiology results reviewed: Yes I reviewed the patient's radiology results. Discharge Plan Plan Patient Disposition: [facility] Being Transferred to: [facility] Service Needed for Transfer: Gastroenterology Patient condition on transfer: Stable Prescriptions/Referrals Referrals: Chino Smith MD [Primary Care Provider] - In 1 week Problem List Clinical Impression: Acute cholangitis due to calculus of bile duct with obstruction Patient/Caregiver Discharge Instructions Print Language: Bolivian Stand Alone Forms: Mel Award Info., Patient Portal Info Letter MD Attestation MD Attestation The patient was seen by the PGY-2. I, the supervising physician, also encountered and examined the patient while remaining present during the entire ER visit. I was available for consultation as needed. Working with the PGY 2, management, treatment plan, and documentation were formulated. I agree with the plan and documentation.
--- NOTE | 2024-08-07 09:00 | PC.NURSE ---
spoke with daughter. updated her on plan of care.
--- NOTE | 2024-08-07 10:26 | XR_ITS ---
Examination: CT brain head without contrast. 2-D sagittal coronal reconstructions Date and time of exam:August 07, 2024 1045 hours INDICATIONS: Altered mental status, headache, sepsis, history passed brain bleed CTDI: vol (mGy):56.7 DLP: (mGycm):1244 Technique: Multiple CT axial sections of the brain have been obtained, 5 mm slice thickness. Contrast has not been administered. 2-D sagittal, coronal reconstructions have been obtained Low dose protocols were performed. One or more of the following dose reduction techniques were used; automated exposure control, adjustment of the mA and/or KV according to patient size, use of iterative reconstruction technique. Findings: Moderate ventricular enlargement Probable subtle calcium density along the larger right lateral ventricle Encephalomalacia in the right frontoparietal region Probable calcification also in the right basal ganglia Fourth ventricle midline Cranial vault intact IMPRESSION: Recommend 1-2 day follow-up films to confirm stable dystrophic calcification in the right cerebral hemisphere as above Brain MRI follow-up would best assess for acute ischemic change
--- NOTE | 2024-08-07 11:20 | PC.CM ---
Addendum entered by Abby Valerio RN 08/07/24 18:47: Packet with CD left with night charge nurse. Addendum entered by Abby Valerio RN 08/07/24 18:46: upholstery mechanic time set for 1929. Ambulance will come sooner if they have a unit sooner. Addendum entered by Abby Valerio RN 08/07/24 17:23: Patient has been accepted to [facility] ED with Dr. Mattson. Number to call report [phone]. I will get packet completed and call for ambulance transport. Addendum entered by Abby Valerio RN 08/07/24 17:04: I initiated transfer with [facility] and I faxed over information. I pushed over images. Addendum entered by Abby Valerio RN 08/07/24 16:48: I spoke to Chel at [facility] and she asked me to fax over the MRCP report. I faxed over the report. Addendum entered by Abby Valerio RN 08/07/24 16:22: I called [facility] and I faxed over information. I pushed over the image of the MRCP to [facility]. They requested I call back after 6pm after their bed meeting. they do not have any beds at this time. Addendum entered by Abby Valerio RN 08/07/24 15:12: I called and spoke to Dr. Ryder to see if we still needed a transfer. I let her know that [facility] does not have any beds at this time but they have patient on a list. Dr. Ryder stated she thinks they can do the MRCP her, she will follow up and get back to me. Addendum entered by Abby Valerio RN 08/07/24 12:37: I received a call from the nurse at [facility] and I gave her a verbal report on patient. Addendum entered by Abby Valerio RN 08/07/24 11:47: 1130 I spoke to Jim[place] I provided more detailed information on the transfer request and the need for ERCP. I let them know the images have been pushed over earlier today along with the paperwork that was faxed over. Original Note: 1032 I received a referral to transfer patient for ERCP. We are not able to do the MRCP at our facility. I sent a referral to [facility]. I pushed over images.
[2024-08-07 11:25] LABS: Lactate (Lactic Acid) 1.7 mMol/L (0.4-2.0)
[2024-08-07 11:26] LABS: Basophils % (Auto) 0 % (0-2.5); Eosinophils % (Auto) 0 % (0-10); Hematocrit 37.6 % (41.0-53.0); Hemoglobin 12.8 g/dL (13.5-16.0); Immature Granulocytes % (Auto) 1 % (0-0); Immature Granulocytes Auto 0.11 Thou/mm3 (0.00-0.00); Lymphocytes # (Auto) 0.7 Thou/mm3 (1.0-4.8); Lymphocytes % (Auto) 4 % (10-50); Mean Corpuscular Hemoglobin 31.4 pg (25.0-35.0); Mean Corpuscular Volume 92 fL (80-100); Monocytes % (Auto) 7 % (0-12); Neutrophils # (Auto) 13.4 Thou/mm3 (1.8-7.7); Neutrophils % (Auto) 88 % (37-80); Nucleated Red Blood Cell % 0 /100 WBC (0); Platelet Count 121 Thou/mm3 (140-440); RDW Standard Deviation 42.6 fL (35.1-43.9); Red Blood Count 4.07 Miln/mm3 (4.50-5.90); White Blood Count 15.2 Thou/mm3 (3.8-10.6)
[2024-08-07] MEDS: PIPER/TAZO INJ 3.375 GM in SODIUM CHLORIDE 0.9% (P) 100 ML IV (11:44)
[2024-08-07 12:04] LABS: Alanine Aminotransferase 783 U/L (10-49); Albumin, Serum 3.3 gm/dL (3.4-4.8); Albumin/Globulin Ratio 1.2 (1.2-2.2); Alkaline Phosphatase 172 U/L (46-116); Anion Gap 8 (7-16); Aspartate Amino Transferase 674 U/L (0-34); BUN/Creatinine Ratio 19 Ratio (12-20); Blood Urea Nitrogen 29 mg/dL (9-23); Calcium 8.3 mg/dL (8.3-10.6); Calcium (Corrected) 8.9 mg/dL (8.5-10.1); Carbon Dioxide 27.3 mMol/L (20.0-31.0); Chloride 101 mMol/L (98-107); Creatinine (Component) 1.5 mg/dL (0.6-1.3); Estimated Creatinine Clearance 51.4 mL/min (>60); Globulin 2.8 gm/dL (2.3-3.5); Glucose 88 mg/dL (74-106); Lipase 35 U/L (12-53); Osmolality,Calculated 276 (275-295); Potassium 4.1 mMol/L (3.4-5.1); Sodium 136 mMol/L (136-145); Total Protein 6.1 gm/dL (5.7-8.2); eGFR 52 See Note
--- NOTE | 2024-08-07 13:10 | PC.NURSE ---
dr guerra at bedside
[2024-08-07] MEDS: LORazepam 2 MG/ML VIAL 0.5 MG IVP (14:20)
[2024-08-07] MEDS: MORPHINE SULF INJ 10 MG/ML VIAL 8 MG IVP (14:21)
[2024-08-07] MEDS: SODIUM CHLORIDE 0.9% 1000 ML 1,000 ML 999 ML IV (14:26)
--- NOTE | 2024-08-07 14:35 | PC.NURSE ---
PT TO MRI
[2024-08-07] MEDS: VANCOMYCIN/NS 1 GM IVPB 200 ML IV (15:29)
--- NOTE | 2024-08-07 17:10 | PC.NURSE ---
urinal drained. 1000ml output noted
--- NOTE | 2024-08-07 18:49 | PC.NURSE ---
ATTEMPTED TO CALL REPORT TO [facility]. WILL CALL BACK IN 10 MIN PER NURSE REQUEST
--- NOTE | 2024-08-07 19:06 | PC.NURSE ---
REPORT GIVEN TO REY AT [facility]
== END 2024-08-07 19:00 | disposition short-term general hospital (02) ==
PROVIDERS: Emergency Medicine; Student in an Organized Health Care Education/Training Program; Emergency Provider Emergency Medicine; PCP Specialist
DX: K80.33 Calculus of bile duct with acute cholangitis with obstruction (principal); I95.9 Hypotension, unspecified; R05.9 Cough, unspecified; R51.9 Headache, unspecified; R41.82 Altered mental status, unspecified; R94.31 Abnormal electrocardiogram [ECG] [EKG]; I10 Essential (primary) hypertension; E78.00 Pure hypercholesterolemia, unspecified
CPT/HCPCS: 36415; 36600; 70450; 71045; 74176; 76705; 80053; 81001; 82803; 83605; 83690; 85025; 87040; 87077; 87086; 87186; 93005; 96361; 96365; 96366; 96367; 96375; 99285; J0696; J2060; J2270; J2543; J3370; J3371; J7030; J7050; S8037; 74181